=== PATIENT | male | born 2000 | race Caucasian/White ===

== ENCOUNTER 2019-11-08 02:45 | Emergency (ER) | payer OTHER, SELFPAY ==
[2019-11-08] MEDS ORDERED: Lidocaine 1% PF 5 ML VIAL ONE ×2 (03:13→03:14)
[2019-11-08] MEDS ORDERED: Ondansetron ODT 4 MG TAB ONE (04:13)
[2019-11-08] MEDS ORDERED: Adacel (T-DAP) 0.5 ML SYRINGE ONE (04:45)
[2019-11-08] MEDS ORDERED: Sulfameth/Trimethoprim DS 800-160mg TAB ONE (04:45)
--- NOTE | 2019-11-08 10:33 | RAD ---
CERVICAL SPINE THREE VIEWS: 11/08/2019 FINDINGS: The sensitivity of the study is low, as the patient was unable to position for the Swimmer's view and there were also technical equipment issues. No fracture was demonstrated. The lower cervical region is not seen as well as the upper. The C1 to d ens distance is normal and the soft tissues are normal in thickness. The lung apices are included on this study as well as the first ribs and both appear normal. IMPRESSION: Limited study showing no acute findings. POS: HOME
--- NOTE | 2019-11-08 11:37 | RAD ---
THORACIC SPINE: 11/08/2019 FINDINGS: No fracture was appreciated. The disk spaces are normal in height. The posterior ribs as they join th e thoracic spine appear intact. The visible portions of the lungs are clear. The mediastinum shows no widening or shift. The upper thoracic vertebrae are not seen optimally. IMPRESSION: No acute findings. Upper thoracic vertebrae not seen well. POS: HOME
--- NOTE | 2019-11-08 12:05 | RAD ---
RIGHT WRIST THREE VIEWS: 11/08/2019 FINDINGS: A nondisplaced fracture of the distal radius is present. The distal ulna appears intact, as do the ca rpal bones. IMPRESSION: Distal radial fracture. POS: HOME
--- NOTE | 2019-11-08 12:06 | RAD ---
LEFT WRIST THREE VIEWS: 11/08/2019 HISTORY: FINDINGS: No fracture is seen. The carpal relationships seem normal, though not all carpal bones are seen optim ally. The metacarpals appear intact. IMPRESSION: No acute finding. POS: HOME
== END 2019-11-08 05:29 | disposition home or self-care (01) ==
LOC: BURERS 02:45
DX: S52.501A Unspecified fracture of the lower end of right radius, initial encounter for closed fracture (principal); S01.81XA Laceration without foreign body of other part of head, initial encounter; S20.229A Contusion of unspecified back wall of thorax, initial encounter; S80.212A Abrasion, left knee, initial encounter; S50.811A Abrasion of right forearm, initial encounter; F17.210 Nicotine dependence, cigarettes, uncomplicated; F17.290 Nicotine dependence, other tobacco product, uncomplicated; Z23 Encounter for immunization; V86.69XA Passenger of other special all-terrain or other off-road motor vehicle injured in nontraffic accident, initial encounter
CPT/HCPCS: 12014; 29125; 72040; 72072; 90471; 90715; J2001; L0120; Q0162